=== PATIENT | female | born 1950 | race African-American/Black ===

== ENCOUNTER 2024-03-29 17:28 | Emergency (ER) | payer SELFPAY ==
[~2024-03-29] VITALS: Ht 172.7 cm; Wt 59.0 kg
[~2024-03-29 17:28] MED LIST: AMIODARONE HCL 50MG/ML 3ML VIAL IV ONE
[2024-03-29 17:33] VITALS: BP 0/0; PULSE 0; RESP 0; TEMP 97.1; O2SAT 0
== END 2024-03-29 17:50 ==
LOC: ER 17:28
DX: I46.9 Cardiac arrest, cause unspecified (principal)
CPT/HCPCS: 82962; 31500; 99285; J0282; J3490 ×3; J3475; Z7610 ×5; 94002; 94660